=== PATIENT | male | born 1995 | race Caucasian/White ===

== ENCOUNTER 2021-04-01 11:27 | Emergency (ER) | payer SELFPAY ==
[2021-04-01 12:30] VITALS: BP 142/76; PULSE 66; RESP 20; TEMP 37; O2SAT 100; BMI 35.9
--- NOTE | 2021-04-01 12:58 | HMH.EDUTC ---
[facility] [place] Clinical Impression: Viral syndrome, Pharyngitis Disposition: Home, Self-Care Condition on Discharge: Good Instructions: DI for Viral Syndrome, DI for COVID-19 (Suspected or Confirmed ), Preventing the Spread of Coronavirus Discharge Instructions Additional Instructions: Drink plenty of fluids. Take tylenol or ibuprofen for pain or fever. Take the medications as directed. Follow up with your regular doctor. GO TO THE ER FOR ANY WORSENING SYMPTOMS Quarantine until you know the results of your covid-19 test. If it is positive, the health department should call you and give you further instructions about your length of Quarantine and other things. Notify your school or workplace of your results and follow their instructions regarding return to work/school. Prescriptions: Benzonatate [Tessalon Perle 100mg Cap] 100 mg PO TIDP PRN #30 cap PRN Reason: Cough Transmission Status: Received by [id number] Azithromycin [Z-Eladio 250mg Tab*] 250 mg PO UD DOSE PK #6 tab Transmission Status: Received by [id number] Referrals: Provider,Referral, [Primary Care Provider] - Forms: Work/School Release Time of Disposition: 13:14 Medical Decision Making - Medical Records Medical records reviewed: No: I reviewed the patient's medical records. - Adilson Inquiry Pt receiving controlled substance: No Vital Signs: 04/01/21 12:30 04/01/21 13:45 Temperature 98.6 F 98.6 F Temperature Source Oral Pulse Rate 66 Pulse Rate [Right Brachial] 66 Respiratory Rate 20 20 Blood Pressure 142/76 H Blood Pressure [Right Arm] 142/76 H Blood Pressure Mean [Right Arm] 98 Blood Pressure Source [Right Arm] Automatic Cuff Blood Pressure Position [Right Arm] Sitting 02 Sat by Pulse Oximetry 100 Oxygen Delivery Method Room Air - Lab Data Lab Results 04/01/21 13:02: Strep Scn Rapid Clinic Negative Orders (Tests/Meds): ORDERS Category Date Time Status Strep Screen Confirmation Stat Micro 04/01/21 13:02 Received [facility] [place] - General Stated complaint: cough Time Seen by Provider: 04/01/21 12:58 Mode of Arrival: Ambulatory Source of Information: Patient Limitations: No Limitations Description of Symptoms (Recalled from Triage Doc. by RN): COVID TEST D/T EXPOSURE. C/O NOT FEELING WELL AND FEELING TIRED HEENT Symptoms (Recalled from RN notes): No Resp Symptoms (Recalled from RN notes): No Skin Symptoms (Recalled from RN notes): No MS Symptoms (Recalled from RN notes): No Functional Status (Recalled from RN notes): WNL - History of Present Illness Provider Complaint: He has felt kind of bad and had a cough for the past 2 days. He has had nausea and he has vomited x2 also. He was exposed to someone with covid-19 last week. He has not been vaccinated. - Related Data Previous Rx's Medication Instructions Recorded Azithromycin [Z-Eladio 250mg Tab*] 250 mg PO UD DOSE PK #6 tab 04/01/21 Benzonatate [Tessalon Perle 100mg 100 mg PO TIDP PRN #30 cap 04/01/21 Cap] Allergies Allergy/AdvReac Type Severity Reaction Status Date / Time No Known Allergies Allergy Verified 04/01/21 12:52 - Worker's Comp Is this a Worker's Comp case?: No [facility] History - Hepatitis A Screen Drug use history?: No High risk sexual behaviors?: No History of sexually transmitted infection?: No Currently employed?: No Childcare worker?: No Do you have indoor plumbing?: Yes Do you have electricity?: Yes Attestation statement:: This patient has been screened for Hepatitis A risk factors. I have reviewed the patient's past medical history: Yes ROS Obtained: Yes All systems reviewed & no additional complaints - Constitutional Constitutional: Reports system reviewed and no additional complaints, except as docu - Eyes Eyes: Reports system reviewed and no additional complaints, except as docu - ENT Ears, Nose, Mouth, and Throat: Reports system reviewed and no additional compl
[2021-04-01 13:12] LABS: UTC Strep Screen (Rapid) Negative (Negative)
[2021-04-01 13:45] VITALS: BP 142/76; PULSE 66; RESP 20; TEMP 37; O2SAT 100
--- NOTE | 2021-04-02 11:28 | PC.NURSE ---
Attempted to call pt to inform of positive COVID results. No answer. No connection to [employer].
== END 2021-04-01 13:46 | disposition home or self-care (01) ==
PROVIDERS: Emergency Provider Nurse Practitioner Family
DX: B34.9 Viral infection, unspecified (principal); J02.9 Acute pharyngitis, unspecified
CPT/HCPCS: 87880; 99203; G0463; U0003